=== PATIENT | female | born 1990 | race African-American/Black ===

== ENCOUNTER 2017-06-17 18:30 | Inpatient (IN) | payer OTHER ==
[~2017-06-17] VITALS: Ht 160 cm; Wt 160.0 kg
[2017-06-17 18:31] VITALS: BP 176/105; PULSE 95; RESP 18; TEMP 98.6; O2SAT 100
[2017-06-17 20:24] LABS: AUTOMATED NEUTROPHIL # 5.6 TH/MM3 (1.8-7.7); BASOPHIL # 0.1 TH/MM3 (0-0.2); BASOPHIL % 0.9 % (0.0-2.0); EOSINOPHIL % 0.3 % (0.0-4.0); HEMATOCRIT 42.3 % (35.0-46.0); LYMPH % 30.5 % (9.0-44.0); LYMPHOCYTE # 2.9 TH/MM3 (1.0-4.8); MEAN CELL VOLUME 78.4 FL (80.0-100.0); MEAN CORPUSCULAR HEMOGLOBIN 25.9 PG (27.0-34.0); MEAN CORPUSCULAR HGB CONC 33.1 % (32.0-36.0); MONO % 9.6 % (0.0-8.0); MONOCYTE # 0.9 TH/MM3 (0-0.9); NEUT % 58.7 % (16.0-70.0); PLATELET COUNT 268 TH/MM3 (150-450); RED CELL DISTRIBUTION WIDTH 14.6 % (11.6-17.2); WHITE BLOOD COUNT 9.6 TH/MM3 (4.0-11.0)
--- NOTE | 2017-06-17 20:44 | PD ---
HPI Chief Complaint: Depression Time Seen by Provider: 20:10 Travel History International Travel<30 days: No Contact w/Intl Traveler<30days: No Traveled to known affect area: No History of Present Illness HPI 26yo F with no significant PMH here with c/o feeling depress and having suicidal thoughts. Pt is tearful and said she did have thoughts but did not elaborate on plans. Pt is with her brother and mother. Denies any fever, chest pain, sob, n/v, abdominal pain, focal weakness or numbness. PFSH Past Medical History Medical History: Denies Significant Hx Immunizations Current: Yes ?: Not Past Surgical History Cholecystectomy: Yes Social History Alcohol Use: No Tobacco Use: No Substance Use: No Allergies-Medications (Allergen,Severity, Reaction): Coded Allergies: No Known Allergies (Unverified , 06/17/17) Review of Systems Except as stated in HPI: all other systems reviewed are Neg Physical Exam Narrative GENERAL: 26yo F tearful. SKIN: Focused skin assessment warm/dry. HEAD: Atraumatic. Normocephalic. EYES: Pupils equal and round. No scleral icterus. No injection or drainage. CARDIOVASCULAR: Regular rate and rhythm. No murmur appreciated. RESPIRATORY: No accessory muscle use. Clear to auscultation. Breath sounds equal bilaterally. GASTROINTESTINAL: Abdomen soft, non-tender, nondistended. MUSCULOSKELETAL: No obvious deformities. No clubbing. No cyanosis. No edema. NEUROLOGICAL: Awake and alert. No obvious cranial nerve deficits. Motor grossly within normal limits. Normal speech. PSYCHIATRIC: inappropriate mood and affect; poor insight and judgment. Data Data Last Documented VS Vital Signs Date Time Temp Pulse Resp B/P (MAP) Pulse Ox O2 Delivery O2 Flow Rate FiO2 06/17/17 18:31 98.6 95 18 176/105 (128) 100 Room Air Orders Orders Complete Blood Count With Diff (06/17/17 19:00) Thyroid Stimulating Hormone (06/17/17 19:00) Basic Metabolic Panel (Bmp) (06/17/17 19:00) Psych Screen (06/17/17 19:00) Drug Screen, Random Urine (06/17/17 19:00) Alcohol (Ethanol) (06/17/17 19:00) Ed Urine Pregnancytest Poc (06/17/17 19:00) Labs Laboratory Tests Test 06/17/17 20:10 White Blood Count 9.6 TH/MM3 Red Blood Count 5.40 MIL/MM3 Hemoglobin 14.0 GM/DL Hematocrit 42.3 % Mean Corpuscular Volume 78.4 FL Mean Corpuscular Hemoglobin 25.9 PG Mean Corpuscular Hemoglobin Concent 33.1 % Red Cell Distribution Width 14.6 % Platelet Count 268 TH/MM3 Mean Platelet Volume 10.0 FL Neutrophils (%) (Auto) 58.7 % Lymphocytes (%) (Auto) 30.5 % Monocytes (%) (Auto) 9.6 % Eosinophils (%) (Auto) 0.3 % Basophils (%) (Auto) 0.9 % Neutrophils # (Auto) 5.6 TH/MM3 Lymphocytes # (Auto) 2.9 TH/MM3 Monocytes # (Auto) 0.9 TH/MM3 Eosinophils # (Auto) 0.0 TH/MM3 Basophils # (Auto) 0.1 TH/MM3 CBC Comment DIFF FINAL Differential Comment Blood Urea Nitrogen 7 MG/DL Creatinine 0.76 MG/DL Random Glucose 89 MG/DL Calcium Level 9.6 MG/DL Sodium Level 140 MEQ/L Potassium Level 3.7 MEQ/L Chloride Level 106 MEQ/L Carbon Dioxide Level 27.2 MEQ/L Anion Gap 7 MEQ/L Estimat Glomerular Filtration Rate 93 ML/MIN Thyroid Stimulating Hormone 3rd Gen 2.240 uIU/ML Ethyl Alcohol Level LESS THAN 3 MG/DL MDM Medical Decision Making Medical Screen Exam Complete: Yes Emergency Medical Condition: Yes Differential Diagnosis Depression vs. bipolar disorder Narrative Course 26yo F with c/o feeling depressed and suicidal thoughts. Pt is currently voluntary so not [place] because she wants to be seen by psychiatrist. Family is concern and if she wants to leave, will [place] her. Labs reviewed , no leukocytosis. H/H normal. BMP unremarkable. TSH normal. Alcohol negative. Creatinine normal. Pt is medically clear for psych evaluation. Family is now leaving and I will [place] her because she was only here because her family made her come. She did voice that she is suicidal to me. Diagnosis Primary Impression: Acute depression Emely Oliva DO Jun 17, 2017 20:44
[2017-06-17 20:58] LABS: BICARBONATE 27.2 MEQ/L (21.0-32.0); BLOOD UREA NITROGEN 7 MG/DL (7-18); CALCIUM 9.6 MG/DL (8.5-10.1); CHLORIDE 106 MEQ/L (98-107); CREATININE 0.76 MG/DL (0.50-1.00); GLOMERULAR FILTRATION RATE 93 ML/MIN (>89); GLUCOSE,RANDOM 89 MG/DL (74-106); SODIUM (NA) 140 MEQ/L (136-145)
[2017-06-17 22:00] VITALS: BP 154/92; PULSE 88; RESP 18; O2SAT 100
[2017-06-18 11:00] VITALS: BP 161/94; PULSE 80; RESP 22
[2017-06-18] MEDS ORDERED: ALUMINUM/MAGNESIUM/SIMETH 30 ML CUP PO PRN (17:15)
[2017-06-18] MEDS ORDERED: diphenhydrAMINE HCL 50 MG/ML VIAL IM PRN (17:15)
[2017-06-18] MEDS ORDERED: hydrOXYzine HCL 50 MG TAB PO PRN (17:15)
[2017-06-18] MEDS ORDERED: MAGNESIUM HYDROXIDE SUSP 30 ML CUP PO PRN (17:15)
[2017-06-18] MEDS ORDERED: ACETAMINOPHEN 325 MG TAB PO PRN (17:15)
[2017-06-18] MEDS ORDERED: diphenhydrAMINE HCL 50 MG CAP PO PRN (18:00)
[2017-06-18 18:08] VITALS: BP 149/94; PULSE 77; RESP 18; TEMP 98
[2017-06-18] MEDS: REMOVE OLD NICOTINE PATCH T-DERMAL SCH (21:00)
[2017-06-19 06:19] VITALS: BP 122/75; PULSE 82; RESP 18; TEMP 98.7; O2SAT 97
[2017-06-19 07:37] LABS: BICARBONATE 24.7 MEQ/L (21.0-32.0); CALCIUM 9.1 MG/DL (8.5-10.1); CHLORIDE 108 MEQ/L (98-107); CREATININE 0.62 MG/DL (0.50-1.00); GLOMERULAR FILTRATION RATE 142 ML/MIN (>89); GLUCOSE,RANDOM 79 MG/DL (74-106); SODIUM (NA) 141 MEQ/L (136-145)
[2017-06-19 07:38] LABS: BLOOD UREA NITROGEN 7 MG/DL (7-18); CHOLESTEROL 114 MG/DL (120-200)
[2017-06-19 07:40] LABS: CHOLESTEROL/ HDL RATIO 2.34 RATIO; HDL CHOLESTEROL 48.6 MG/DL (40.0-60.0); LDL CHOLESTEROL 52 MG/DL (0-99); TRIGLYCERIDES 66 MG/DL (42-150)
[2017-06-19] MEDS: NICOTINE 21 MG/24 HR PATCH T-DERMAL SCH (09:00)
[2017-06-19] MEDS ORDERED: hydrOXYzine HCL 50 MG TAB PO PRN (13:00)
[2017-06-19] MEDS: SERTRALINE HCL 50 MG TAB PO SCH (13:00)
[2017-06-19 15:50] LABS: HEMOGLOBIN A1C 5.3 % (4.3-6.0)
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
[2017-06-19 17:21] VITALS: BP 133/90; PULSE 75; RESP 18; TEMP 98.4; O2SAT 98
[2017-06-19] MEDS: REMOVE OLD NICOTINE PATCH T-DERMAL SCH (20:50)
[2017-06-19] MEDS: traZODone HCL 50 MG TAB PO SCH (21:00)
[2017-06-20 05:44] VITALS: BP 134/77; PULSE 69; RESP 18; TEMP 97.8; O2SAT 97
--- NOTE | 2017-06-20 08:12 | PD.PSY.CON ---
Provisional Diagnosis Admission Date Jun 18, 2017 at 15:58 [place] I. Major depressive disorder, single episode, severe without psychotic features History of Present Illness Service Psychiatry Consult Requested By Second opinion Reason for Consult Second opinion Primary Care Physician No Primary Care Physician HPI Patient is a 26 y/o woman, single, no children, unemployed domiciled with mother and sister, with past psychiatric history of ADHD, no prior psychiatric admissions, no prior suicide attempts, history of self injurious behavior via cutting, THC use disorder, who presented to the ED for feeling depressed with suicidal ideations, put under [place] Act due to the same and admitted to the inpatient psychiatry unit for further evaluation and management. Patient was seen in day room, calm and cooperative with interview but noted to be guarded. Patient states having been feeling "up and down" but mostly depressed with poor appetite and energy but denied changes in sleep or concentration. She states that for the past months she has had difficulty keeping a job and has left several of them. She mentions feeling "no one needed me", and being "mistreated " at her last employ which she had left shortly after starting. Patient states "I quit on everything...I don't know where I belong". Patient noted to be tearful throughout interview and reluctant to consent for her mother to be involved in her care stating that mother's testimony would keep her in the unit longer. Patient admitted to having had suicidal ideations but did not elaborate. She was requesting to be discharged but it was explained to her the reasoning for which petition for involuntary hospitalization would be started. The patient is a 26 years old woman, single, no kids, unemployed, domiciled with her mother in [facility], with past psychiatric history of ADHD, no previous psychiatric admissions, previous suicidal attempts, history of self cutting behavior, who was brought to the hospital under pendleton act due to suicidal ideation. Patient was consulted to me for second opinion. On psychiatric evaluation the patient is calm, cooperative, she reports that she came to the hospital because she has been very overwhelmed, frustrated, feeling depressed and having suicidal thoughts with a plan of overdosing. The patient is fully oriented 3, no attention deficit, no fluctuation of consciousness. Review of Systems Constitutional: DENIES: Diaphoretic episodes, Fatigue, Fever, Weight gain, Weight loss, Chills, Dizziness, Change in appetite, Night Sweats Endocrine: DENIES: Abnorml menstrual pattern, Heat/cold intolerance, Polydipsia , Polyuria, Polyphagia Eyes: DENIES: Blurred vision, Diplopia, Eye inflammation, Eye pain, Vision loss , Photosensitivity, Double Vision Ears, nose, mouth, throat: DENIES: Tinnitus, Hearing loss, Vertigo, Nasal discharge, Oral lesions, Throat pain, Hoarseness, Ear Pain, Running Nose, Epistaxis, Sinus Pain, Toothache, Odynophagia Respiratory: DENIES: Apneas, Cough, Snoring, Wheezing, Hemoptysis, Sputum production, Shortness of breath Cardiovascular: DENIES: Chest pain, Palpitations, Syncope, Dyspnea on Exertion , PND, Lower Extremity Edema, Orthopnea, Claudication Gastrointestinal: DENIES: Abdominal pain, Black stools, Bloody stools, Constipation, Diarrhea, Nausea, Vomiting, Difficulty Swallowing, Anorexia Genitourinary: DENIES: Abnormal vaginal bleeding, Dysmenorrhea, Dyspareunia, Sexual dysfunction, Urinary frequency, Urinary incontinence, Urgency, Hematuria , Dysuria, Nocturia, Vaginal discharge Musculoskeletal: DENIES: Joint pain, Muscle aches, Stiffness, Joint Swelling, Back pain, Neck pain Integumentary: DENIES: Abnormal pigmentation, Pruritus, Rash, Nail changes, Breast masses, Breast skin changes, Nipple discharge Hematologic/lymphatic: DENIES: Bruising, Lymphadenopathy Immunologic/allergic: DENIES: Eczema, Urticaria Neurologic: DENIES: Abnormal gait, Headache, Localized weakness, Paresthesias, Seizures, Speech Problems, Tremor, Poor Balance Psychiatric: DENIES: Anxiety, Confusion, Mood changes, Depression, Hallucinations, Agitation, Suicidal Ideation, Homicidal Ideation, Delusions Except as stated in HPI: all other systems reviewed are Neg Past Family Social History Coded Allergies: No Known Allergies (Unverified , 06/17/17) No Active Prescriptions or Reported Meds Current Medications Medications (Trade) Dose Ordered Sig/Kwan Route Start Time Stop Time Status Last Admin (Atarax) 50 mg Q6H PRN PO 06/18/17 17:15 (Benadryl) 50 mg Q6H PRN PO 06/18/17 18:00 (Benadryl Inj) 50 mg Q6H PRN IM 06/18/17 17:15 (Tylenol) 650 mg Q4H PRN PO 06/18/17 17:15 (Milk Of Magnesia Liq) 30 ml DAILY PRN PO 06/18/17 17:15 (Mag-Al Plus Susp Liq) 30 ml Q6H PRN PO 06/18/17 17:15 (Habitrol 21 Mg Patch.24 Hr) 1 patch DAILY T-DERMAL 06/19/17 09:00 Miscellaneous Information 1 HS T-DERMAL 06/18/17 21:00 (Zoloft) 50 mg DAILY PO 06/19/17 13:00 06/19/17 13:00 (Atarax) 50 mg Q6H PRN PO 06/19/17 13:00 (Desyrel) 50 mg HS PO 06/19/17 21:00 Patient's Strengths (min. 2) verbal and communicative Physical Exam Vital Signs Vital Signs Date Time Temp Pulse Resp B/P (MAP) Pulse Ox O2 Delivery O2 Flow Rate FiO2 06/20/17 05:44 97.8 69 18 134/77 (96) 97 06/18/17 11:00 Room Air Mental Status Examination Appearance: Appropriate Consciousness: Alert Orientation: Person Motor Activity: Normal gait Speech: Unremarkable Language: Adequate Fund of Knowledge: Inadequate Attention and Concentration: Adequate Memory: Unremarkable Mood: Sad Affect: Sad, Other (tearful throughout interview) Thought Process & Associations: Linear Thought Content: Preoccupations (perseverative on discharge) Hallucination Type: None Delusion Type: None Suicidal Ideation: Yes Suicidal Plan: No Suicidal Intention: No Homicidal Ideation: No Homicidal Plan: No Homicidal Intention: No Insight: Poor Judgment: Poor Assessment & Plan Problem List: (1) Major depressive disorder without psychotic features ICD Codes: F32.9 - Major depressive disorder, single episode, unspecified Assessment & Plan: I have seen and examined this patient for second opinion. I have discussed the case with Dr. Carbone. I agree and concur with his assessment and plan. Assessment & Plan Estimated LOS: Greg Davila MD Jun 20, 2017 08:12
[2017-06-20] MEDS: NICOTINE 21 MG/24 HR PATCH T-DERMAL SCH (09:00)
[2017-06-20] MEDS: SERTRALINE HCL 50 MG TAB PO SCH (09:26)
--- NOTE | 2017-06-20 15:05 | HHI.PYPN ---
Subjective Remarks Patient seen for follow-up, chart reviewed. Discussion nursing staff reported the patient is pleasant although somewhat guarded with staff. Patient was in the room to be calm and cooperative. Patient states that she had been feeling "good" reports having slept better as well as having improved mood today. Patient continues to report having some depressive symptoms but less intense and not having any due to suicide ideations today. Patient reports having spoke with her mother and father yesterday as he came to visit in which she states went well she states that she is also trying to attend groups while on the unit. Review of Systems Except as stated in HPI: all other systems reviewed are Neg Mental Status Examination Appearance: Appropriate Consciousness: Alert Orientation: Person Motor Activity: Normal gait Speech: Unremarkable Language: Adequate Fund of Knowledge: Inadequate Attention and Concentration: Adequate Memory: Unremarkable Mood: Sad Affect: Sad, Other (tearful throughout interview) Thought Process & Associations: Linear Thought Content: Appropriate Hallucination Type: None Delusion Type: None Suicidal Ideation: Yes (Denies today) Suicidal Plan: No Suicidal Intention: No Homicidal Ideation: No Homicidal Plan: No Homicidal Intention: No Insight: Poor Judgment: Poor Results Vitals/IOs Vital Signs Date Time Temp Pulse Resp B/P (MAP) Pulse Ox O2 Delivery O2 Flow Rate FiO2 06/20/17 05:44 97.8 69 18 134/77 (96) 97 06/18/17 11:00 Room Air Assessment & Plan Problem List: (1) Major depressive disorder without psychotic features ICD Codes: F32.9 - Major depressive disorder, single episode, unspecified Assessment & Plan Patient this time continues report feeling depressed although less tearful and reporting decreased depression today denying any suicide ideations as well. Patient reporting having slightly improved sleep. We will continue current treatment as patient recently started antidepressant yesterday. Continue to monitor mood and behavior. Discharge planning in progress Justification for Cont. Inpt. At risk for further decompensation if at lower level of care Discharge Planning To return back to her residence once psychiatrically stable. Alexandre Carbone MD Jun 20, 2017 15:05
[2017-06-20] MEDS: traZODone HCL 50 MG TAB PO SCH (21:00)
[2017-06-20] MEDS: REMOVE OLD NICOTINE PATCH T-DERMAL SCH (21:00)
[2017-06-21 05:38] VITALS: BP 146/94; PULSE 74; RESP 18; TEMP 97.7; O2SAT 100
[2017-06-21] MEDS: NICOTINE 21 MG/24 HR PATCH T-DERMAL SCH (09:00)
[2017-06-21] MEDS: SERTRALINE HCL 50 MG TAB PO SCH (09:26)
--- NOTE | 2017-06-21 16:55 | HHI.PYPN ---
Subjective Remarks Pt seen and discussed with staff. Mood is improving and she denies SI/HI. She c/ o of racing thoughts and high anxiety. She has been attending therapeutic groups and did ADLs today. No medication side effects. Mental Status Examination Appearance: Appropriate Consciousness: Alert Orientation: Person Motor Activity: Normal gait Speech: Unremarkable Language: Adequate Fund of Knowledge: Inadequate Attention and Concentration: Adequate Memory: Unremarkable Mood: Sad, Anxious Affect: Sad, Anxious Thought Process & Associations: Linear Thought Content: Appropriate Hallucination Type: None Delusion Type: None Suicidal Ideation: No Suicidal Plan: No Suicidal Intention: No Homicidal Ideation: No Homicidal Plan: No Homicidal Intention: No Insight: Poor Judgment: Poor Results Vitals/IOs Vital Signs Date Time Temp Pulse Resp B/P (MAP) Pulse Ox O2 Delivery O2 Flow Rate FiO2 06/21/17 05:38 97.7 74 18 146/94 (111) 100 06/18/17 11:00 Room Air Assessment & Plan Problem List: (1) Major depressive disorder without psychotic features ICD Codes: F32.9 - Major depressive disorder, single episode, unspecified Status: Acute Assessment & Plan pt improving. Continue current tx plan. Estimated LOS: days Justification for Cont. Inpt. monitoring for safety Problem Qualifiers (1) Major depressive disorder without psychotic features: Qualified Codes: F32.2 - Major depressive disorder, single episode, severe without psychotic features Candelaria Vaughn MD Jun 21, 2017 16:55
[2017-06-21 18:00] VITALS: BP 140/90; PULSE 76; RESP 18; TEMP 97.7; O2SAT 100
[2017-06-21] MEDS: REMOVE OLD NICOTINE PATCH T-DERMAL SCH (20:53)
[2017-06-21] MEDS: traZODone HCL 50 MG TAB PO SCH (20:53)
[2017-06-22 05:34] VITALS: BP 117/65; PULSE 66; RESP 16; TEMP 97.9; O2SAT 99
[2017-06-22] MEDS: SERTRALINE HCL 50 MG TAB PO SCH (08:32)
[2017-06-22] MEDS: NICOTINE 21 MG/24 HR PATCH T-DERMAL SCH (08:33)
--- NOTE | 2017-06-22 13:12 | HHI.PYPN ---
Subjective Remarks Pt seen and discussed with staff. She attended psychotherapy groups today. She has been tearful and having crying spells on unit. She has been compliant with sertraline but has refused trazodone because she has not had trouble sleeping. She reports that SI has decreased and depression has improved some Mental Status Examination Appearance: Appropriate Consciousness: Alert Orientation: Person Motor Activity: Normal gait Speech: Unremarkable Language: Adequate Fund of Knowledge: Inadequate Attention and Concentration: Adequate Memory: Unremarkable Mood: Sad, Anxious Affect: Sad, Anxious Thought Process & Associations: Linear Thought Content: Appropriate Hallucination Type: None Delusion Type: None Suicidal Ideation: No Suicidal Plan: No Suicidal Intention: No Homicidal Ideation: No Homicidal Plan: No Homicidal Intention: No Insight: Poor Judgment: Poor Results Vitals/IOs Vital Signs Date Time Temp Pulse Resp B/P (MAP) Pulse Ox O2 Delivery O2 Flow Rate FiO2 06/22/17 05:34 97.9 66 16 117/65 (82) 99 06/18/17 11:00 Room Air Intake and Output 06/22/17 06/22/17 06/23/17 08:00 16:00 00:00 Intake Total 240 ml 240 ml Balance 240 ml 240 ml Assessment & Plan Problem List: (1) Major depressive disorder without psychotic features ICD Codes: F32.9 - Major depressive disorder, single episode, unspecified Status: Acute Assessment & Plan Pt improving. Continue current tx plan. Will change trazodone order to prn. Estimated LOS: days Justification for Cont. Inpt. monitoring for safety Problem Qualifiers (1) Major depressive disorder without psychotic features: Qualified Codes: F32.2 - Major depressive disorder, single episode, severe without psychotic features Candelaria Vaughn MD Jun 22, 2017 13:12
[2017-06-22] MEDS ORDERED: traZODone HCL 50 MG TAB PO PRN (16:00)
[2017-06-22 18:37] VITALS: BP 122/78; PULSE 76; RESP 18; TEMP 98.2; O2SAT 97
[2017-06-22] MEDS: REMOVE OLD NICOTINE PATCH T-DERMAL SCH (21:00)
[2017-06-23 06:21] VITALS: BP 131/99; PULSE 86; RESP 16; TEMP 98.1; O2SAT 98
[2017-06-23] MEDS: NICOTINE 21 MG/24 HR PATCH T-DERMAL SCH (09:00)
[2017-06-23] MEDS: SERTRALINE HCL 50 MG TAB PO SCH (09:00)
[2017-06-23] MEDS ORDERED: ZOLO50TA PO (13:45)
--- NOTE | 2017-06-23 16:29 | HHI.DS ---
Psychiatry Discharge Summary Inpatient Psychiatric care?: Yes Advance Directive: No Reason Not Provided: does not have advance directive Mental Health AdvanceDirective: No Health Care Proxy: No Admission Admission Date Jun 18, 2017 at 15:58 Admission Diagnosis: (1) Major depressive disorder without psychotic features ICD Code: F32.9 - Major depressive disorder, single episode, unspecified Brief History Patient is a 26 y/o woman, single, no children, unemployed domiciled with mother and sister, with past psychiatric history of ADHD, no prior psychiatric admissions, no prior suicide attempts, history of self injurious behavior via cutting, THC use disorder, who presented to the ED for feeling depressed with suicidal ideations, put under [place] Act due to the same and admitted to the inpatient psychiatry unit for further evaluation and management. Patient was seen in day room, calm and cooperative with interview but noted to be guarded. Patient states having been feeling "up and down" but mostly depressed with poor appetite and energy but denied changes in sleep or concentration. She states that for the past months she has had difficulty keeping a job and has left several of them. She mentions feeling "no one needed me", and being "mistreated " at her last employ which she had left shortly after starting. Patient states "I quit on everything...I don't know where I belong". Patient noted to be tearful throughout interview and reluctant to consent for her mother to be involved in her care stating that mother's testimony would keep her in the unit longer. Patient admitted to having had suicidal ideations but did not elaborate. She was requesting to be discharged but it was explained to her the reasoning for which petition for involuntary hospitalization would be started. The patient is a 26 years old woman, single, no kids, unemployed, domiciled with her mother in [facility], with past psychiatric history of ADHD, no previous psychiatric admissions, previous suicidal attempts, history of self cutting behavior, who was brought to the hospital under [place] act due to suicidal ideation. Patient was consulted to me for second opinion. On psychiatric evaluation the patient is calm, cooperative, she reports that she came to the hospital because she has been very overwhelmed, frustrated, feeling depressed and having suicidal thoughts with a plan of overdosing. The patient is fully oriented 3, no attention deficit, no fluctuation of consciousness. Tobacco Use In Past 30 Days: No Tobacco Past 30 Days Alcohol Use: Never Hospital Course Patient is a 26 y/o woman, single, no children, unemployed domiciled with mother and sister, with past psychiatric history of ADHD, no prior psychiatric admissions, no prior suicide attempts, history of self injurious behavior via cutting, THC use disorder, who presented to the ED for feeling depressed with suicidal ideations, put under [place] due to the same and admitted to the inpatient psychiatry unit for further evaluation and management. Patient was started on sertraline 50mg PO daily which she tolerated well. She was noted to be more interactive with staff, improved mood, no longer endorsing suicidal ideation and noted to participate in groups and activities. Upon discharge patient stated feeling good, stated feeling okay with returning back to his home with his mother; noted to be calm and cooperative with staff. She agreed to continuing medication regimen and treatment and follow up with outpatient services for continuity of care. Patient; denies SI, HI, AVH or delusions. Supportive psychotherapy provided. Suicide and violence risk assessment on day of discharge both suggest lower imminent risk, and the patient 's level of function is adequate for planned level of outpatient care. Patient has maximized benefit from this inpatient psychiatric hospital stay and to return to psychiatric emergency room for any concerning psychiatric symptoms. Patient agrees with plan. Results Blood Pressure 131 / 99 Vital Signs Date Time Temp Pulse Resp B/P (MAP) Pulse Ox O2 Delivery O2 Flow Rate FiO2 06/23/17 06:21 98.1 86 16 131/99 (110) 98 Laboratory Results Test 06/19/17 06:02 Cholesterol Level 114 MG/DL (120-200) HDL Cholesterol 48.6 MG/DL (40.0-60.0) Hemoglobin A1c 5.3 % (4.3-6.0) LDL Cholesterol 52 MG/DL (0-99) Triglycerides Level 66 MG/DL (42-150) Summary of Procedures none Pending results at discharge: No Medications # of Antipsychotic meds at D/C: 0 Approp Antipsych med options 1 - Minimum of three failed multiple trials of monotherapy. 2 - Documented plan to taper to monotherapy due to previous use of multiple meds OR cross-taper in progress at D/C. 3 - Documentation of augmentation of Clozapine. 4 - Justification other than those listed in allowable values 1-3, document here : Discharge Discharge Date: Jun 23, 2017 Discharge Diagnosis: (1) Major depressive disorder without psychotic features ICD Code: F32.9 - Major depressive disorder, single episode, unspecified Status: Acute Pt Condition on Discharge: Stable Discharge Disposition: Discharge Home Discharge Instructions Diet Instructions: Heart Healthy Diet Activities you can perform: Regular-No Restrictions Scheduled Appointment: Zoran Bermudez Leonardo Appointment Date: Jun 24, 2017 Appointment Time: 8 - 3 Discharge Time > 30 minutes Mental Status Examination Appearance: Appropriate Consciousness: Alert Orientation: Person Motor Activity: Normal gait Speech: Unremarkable Language: Adequate Fund of Knowledge: Inadequate Attention and Concentration: Adequate Memory: Unremarkable Mood: Appropriate Affect: Appropriate Thought Process & Associations: Intact, Goal directed, Linear Thought Content: Appropriate Hallucination Type: None Delusion Type: None Suicidal Ideation: No Suicidal Plan: No Suicidal Intention: No Homicidal Ideation: No Homicidal Plan: No Homicidal Intention: No Insight: Adequate Judgment: Adequate Discharge/Advance Care Plan Health Problems: (1) Major depressive disorder without psychotic features Goals to promote your health * To prevent worsening of your condition and complications * To maintain your health at the optimal level Directions to meet your goals Take your medications as prescribed Follow your dietary instruction Follow activity as directed Keep your appointments as scheduled Take your immunizations and boosters as scheduled If your symptoms worsen call your PCP, if no PCP go to Urgent Care Center or Emergency Room For 24 questions related to your inpatient stay or results of tests pending at discharge, please contact Dr. Alexandre Carbone at Smoking is Dangerous to Your Health. Avoid second hand smoking Problem Qualifiers (1) Major depressive disorder without psychotic features: Qualified Codes: F32.2 - Major depressive disorder, single episode, severe without psychotic features Alexandre Carbone MD Jun 23, 2017 16:29
== END 2017-06-23 17:20 | disposition home or self-care (01) | DRG 881 ==
LOC: NEPD 18:30 → NEDA 06-18 15:58 → H260 06-18 17:30
PROVIDERS: ADMIT Student in an Organized Health Care Education/Training Program; ATTEND Student in an Organized Health Care Education/Training Program
DX: F32.9 Major depressive disorder, single episode, unspecified (principal); F12.90 Cannabis use, unspecified, uncomplicated
CPT/HCPCS: 80048; 80061; 80307; 83036; 84443; 85025